=== PATIENT | male | born 1945 | race Caucasian/White ===

== ENCOUNTER → 2018-05-29 | Outpatient (CLI) | payer MEDICARE | END | disposition home or self-care (01) | LOC: LAB SHORT 10:33 → PLD 10:33 | DX: L57.0 Actinic keratosis (principal) | CPT/HCPCS: 88305 ==

== ENCOUNTER 2018-09-06 07:35 | Day surgery (SDC) | payer OTHER ==
[~2018-09-06] VITALS: Ht 167.6 cm; Wt 64.6 kg
[~2018-09-06 07:35] MED LIST: HYDSUL200; METTREX2.5; NORT25; Norco 10-325 T1 EACH; Viagra100 MG
[2018-09-06] MEDS ORDERED: CITA20 PO (08:20)
[2018-09-06] MEDS ORDERED: LOSA25 PO (08:21)
== END 2018-09-06 10:22 | disposition home or self-care (01) ==
LOC: ORSCSDS 07:35
PROVIDERS: Internal Medicine Gastroenterology
PROC: 0DB48ZX Excision of Esophagogastric Junction, Via Natural or Artificial Opening Endoscopic, Diagnostic (ICD-10-PCS; principal; 2018-09-06 09:00)
PROC: 0DB68ZX Excision of Stomach, Via Natural or Artificial Opening Endoscopic, Diagnostic (ICD-10-PCS; principal; 2018-09-06 09:00)
PROC: 0DBL8ZX Excision of Transverse Colon, Via Natural or Artificial Opening Endoscopic, Diagnostic (ICD-10-PCS; principal; 2018-09-06 09:00)
DX: R19.5 Other fecal abnormalities (principal); K21.9 Gastro-esophageal reflux disease without esophagitis; K22.70 Barrett's esophagus without dysplasia; R10.12 Left upper quadrant pain; R11.0 Nausea; D12.3 Benign neoplasm of transverse colon; K31.7 Polyp of stomach and duodenum; K57.30 Diverticulosis of large intestine without perforation or abscess without bleeding; K29.70 Gastritis, unspecified, without bleeding; I10 Essential (primary) hypertension; F17.210 Nicotine dependence, cigarettes, uncomplicated; Z79.899 Other long term (current) drug therapy
CPT/HCPCS: 87081; 88305; 88342; J0330; J0461; J1980; J2405; J2704; J3010; J7120

== ENCOUNTER → 2018-12-01 | Outpatient (CLI) | payer OTHER ==
[~2018-12-01] MED LIST changes: +CITA20 PO; +LOSA25 PO
[2018-12-01 10:47] LABS: Stool Occult Bld Immuno 1 Negative (NEGATIVE)
[2018-12-01 10:48] LABS: Stool Occult Bld Immuno 2 Negative (NEGATIVE)
== END | disposition home or self-care (01) ==
LOC: LAB EV 07:40
PROVIDERS: Internal Medicine Gastroenterology
DX: R19.5 Other fecal abnormalities (principal)
CPT/HCPCS: 82274

== ENCOUNTER → 2021-05-11 | Outpatient (CLI) | payer OTHER | END | disposition home or self-care (01) | LOC: LAB SHORT 11:15 | DX: L57.0 Actinic keratosis (principal) | CPT/HCPCS: 88305 ==

== ENCOUNTER 2021-12-09 08:31 | Day surgery (SDC) | payer OTHER ==
[~2021-12-09] VITALS: Ht 167.6 cm; Wt 59.8 kg
[~2021-12-09 08:31] MED LIST changes: +CALCIUM CARBON500 M1; +ESOM20 PO; +FOLI1 PO; +HYDHCL25; +TRAM50 PO
== END 2021-12-09 11:15 | disposition home or self-care (01) ==
LOC: ORSCSDS 08:31
PROVIDERS: Internal Medicine Gastroenterology
PROC: 0DB58ZX Excision of Esophagus, Via Natural or Artificial Opening Endoscopic, Diagnostic (ICD-10-PCS; principal; 2021-12-09 09:45)
PROC: 0DJD8ZZ Inspection of Lower Intestinal Tract, Via Natural or Artificial Opening Endoscopic (ICD-10-PCS; principal; 2021-12-09 09:45)
DX: K22.70 Barrett's esophagus without dysplasia (principal); Z12.11 Encounter for screening for malignant neoplasm of colon; K57.30 Diverticulosis of large intestine without perforation or abscess without bleeding; Z86.010 Personal history of colon polyps; Z79.899 Other long term (current) drug therapy
CPT/HCPCS: 43239; G0105; 88305; J2704; J7120

== ENCOUNTER 2025-02-19 11:13 | Day surgery (SDC) | payer OTHER ==
[~2025-02-19] VITALS: Ht 167.6 cm; Wt 65.3 kg
[2025-02-19] MEDS ORDERED: ABILIFY MYCITE2 M2 (12:00)
[2025-02-19] MEDS ORDERED: AMLO5 (12:00)
[2025-02-19] MEDS ORDERED: CENTRUM SILVER1 EAC2 (12:01)
[2025-02-19] MEDS ORDERED: CELEXA (12:01)
[2025-02-19] MEDS ORDERED: LATA.005SO (12:01)
[2025-02-19] MEDS ORDERED: Protonix40 MG (12:02)
[2025-02-19 14:16] VITALS: BP 121/82
== END 2025-02-19 14:20 | disposition home or self-care (01) ==
LOC: ORSCSDS 11:13
PROVIDERS: Specialist
PROC: 0DB58ZX Excision of Esophagus, Via Natural or Artificial Opening Endoscopic, Diagnostic (ICD-10-PCS; principal; 2025-02-19 13:30)
PROC: 0DB78ZX Excision of Stomach, Pylorus, Via Natural or Artificial Opening Endoscopic, Diagnostic (ICD-10-PCS; principal; 2025-02-19 13:30)
DX: K22.70 Barrett's esophagus without dysplasia (principal); K21.9 Gastro-esophageal reflux disease without esophagitis; K44.9 Diaphragmatic hernia without obstruction or gangrene; K29.70 Gastritis, unspecified, without bleeding; Z79.899 Other long term (current) drug therapy; Z87.891 Personal history of nicotine dependence; I10 Essential (primary) hypertension; Z85.46 Personal history of malignant neoplasm of prostate; Z86.0101 Personal history of adenomatous and serrated colon polyps
CPT/HCPCS: 88305; 88342; J2704; J7120